=== PATIENT | male | born 1950 | race African-American/Black ===

== ENCOUNTER 2020-08-11 08:40 | Emergency (ER) | payer MEDICARE, MEDICAID ==
[~2020-08-11] VITALS: Ht 177.8 cm; Wt 92.0 kg
[2020-08-11] MEDS ORDERED: KETOROLAC 60MG/2ML VIAL IM ONE (09:15)
[2020-08-11] MEDS ORDERED: AMOXICILLIN/POTASSIUM CLAVULANATE 875/125MG TAB PO ONE (09:15)
[2020-08-11] MEDS ORDERED: HYDROCODONE/ACETAMINOPHEN 5/325MG TABLET PO ONE (09:15)
[2020-08-11] MEDS ORDERED: AMOX-424 MT (10:08)
[2020-08-11] MEDS ORDERED: IBUP-2029 MT (10:08)
[2020-08-11 10:50] VITALS: BP 142/72
== END 2020-08-11 11:07 | disposition home or self-care (01) ==
LOC: ER 09:11
DX: L03.211 Cellulitis of face (principal); K04.7 Periapical abscess without sinus; E11.9 Type 2 diabetes mellitus without complications
CPT/HCPCS: 70486; 96372; 99284; J1885

== ENCOUNTER 2025-03-07 11:33 | Emergency (ER) | payer BC, MEDICAID ==
[~2025-03-07] VITALS: Ht 177.8 cm; Wt 76.0 kg
[~2025-03-07 11:33] MED LIST: AMOX-424 MT; IBUP-1455 MT
[2025-03-07 11:44] VITALS: O2SAT 97
[2025-03-07] MEDS: LIDOCAINE HCL 1% 20ML VIAL INFIL ONE (13:01)
[2025-03-07] MEDS: ACETAMINOPHEN 325MG TABLET PO ONE (14:51)
[2025-03-07] MEDS: BACITRACIN ZINC OINT UDPKT TOP ONE (17:26)
[2025-03-07 17:46] VITALS: BP 136/94; PULSE 80; RESP 18; TEMP 36.4; O2SAT 98
== END 2025-03-07 18:49 | disposition home or self-care (01) ==
LOC: ER 11:33
DX: S60.940A Unspecified superficial injury of right index finger, initial encounter (principal); S60.440A External constriction of right index finger, initial encounter; E11.9 Type 2 diabetes mellitus without complications; I10 Essential (primary) hypertension; E78.5 Hyperlipidemia, unspecified; J45.909 Unspecified asthma, uncomplicated; Z86.73 Personal history of transient ischemic attack (TIA), and cerebral infarction without residual deficits; X58.XXXA Exposure to other specified factors, initial encounter; Y93.89 Activity, other specified; Y92.89 Other specified places as the place of occurrence of the external cause; Y99.8 Other external cause status
CPT/HCPCS: 64450; 99284; 73130; 29125; J2003